=== PATIENT | male | born 1990 | race Two or more races ===

== ENCOUNTER 2020-08-07 11:46 | Emergency (ER) | payer SELFPAY ==
[~2020-08-07] VITALS: Ht 185.4 cm; Wt 130.1 kg
[2020-08-07 12:19] VITALS: BP 141/98
[2020-08-07] MEDS ORDERED: LIDOCAINE 1% HCL (LOCAL ANESTH.) INJ 20ML MDV IJ ONE (13:45)
[2020-08-07] MEDS ORDERED: LIDOCAINE 1% HCL (LOCAL ANESTH.) INJ 20ML MDV ONE (13:46)
== END 2020-08-07 14:12 | disposition home or self-care (01) ==
LOC: ER 11:46
DX: L02.212 Cutaneous abscess of back [any part, except buttock and flank] (principal); D17.1 Benign lipomatous neoplasm of skin and subcutaneous tissue of trunk
CPT/HCPCS: 10060; 99283; J2001